=== PATIENT | male | born 1995 | race Two or more races ===

== ENCOUNTER 2017-06-13 20:04 | Emergency (ER) | payer SELFPAY ==
[~2017-06-13] VITALS: Ht 165.1 cm; Wt 56.7 kg
[2017-06-13 21:53] VITALS: BP 126/75
[2017-06-13] MEDS ORDERED: MECLIZINE 25MG25 MG PO (22:03)
--- NOTE | 2017-06-13 22:03 | Urgent Treatment Center Report ---
History of Present Issue Date/Time Seen by Provider 06/13/172149 Visit Reason Pt arrived:Walked Presenting Problem:PT STATES HE FELL AND PASSED OUT. WITNESS SAID HE DID NOT HIT ANYTHING ON THE WAY DOWN Location if Accident: Onset of symptoms date/time:/ or onset unknown for:MEDICAL HX UNKNOWN Have you (or family members/close friends) recently traveled outside the [place]? N If Yes, where/when: Have you had exposure to infectious disease within the past month? TB? Other? 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 No Angina: No [place]: No Hypertension? No Hyperlipidemia? No CHF? No DVT? No PE? No COPD? No Asthma? No Anemia? No GERD? No Gastric ulcers? No GI Bleed? No Hernia? No Thyroid Problems? No Hypothyroidism? No CVA? No Seizures? No Diabetes? No Renal Insuffiency? No UTI? No Stones? No BPH? No GB Disease: No Nephritic Syndrome? No Asplenia? No Hepatitis? No Sickle Cell Disease? No Arthritis? No Migraines? No Cataracts? No Glaucoma? No MRSA? No HIV? No TB? No Anxiety? No Depression? No Cancer? No More? No Immunization HX DT/Tetanus Unknown Surgical Hx Previous Surgery?N Social History Smoking Hx Smoker: Never Smoker Tobacco: No Alcohol Alcohol: No Review of Systems All Other Systems Reviewed and Negative Comment Dizzy with movement, feel earlier bystanders says he passed out however patient denies passing out state sthat he felt dizzy and fell denies any pain or other injuries Physical Exam Vital Signs Vital Signs Date Time Temp Pulse Resp B/P Pulse O2 O2 Flow FiO2 Ox Delivery Rate 06/13 2153 98.0 83 20 126/75 98 06/13 2057 98.0 83 20 126/75 98 General Appearance normal appearance, WD/WN, no apparent distress Ear, Nose, Throat left ear fluid noted, Respiratory Status Yes: trachea midline, chest symmetrical, non tender chest. No: respiratory distress. 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 No Results/Orders Current Medication Orders Sig/Alissa Start time Last Medication Dose Route Stop Time Status Admin Meclizine HCl 25 MG ONCE ONE 06/13 2200 DC 06/13 PO 06/13 Meclizine HCl 0 .STK-MED ONE 06/13 2159 DC .ROUTE Progress [facility] Progress Notes Comment Advised patient that he may need to be seen in ER for more extensive workup refused transfer Departure Departure Time of Disposition 2155 Disposition DC Home or Self Care(routine) Clinical Impression Primary Impression: Vertigo Condition STABLE Patient Instructions DI for Vertigo Additional Instructions Follow up with family doctor Take medication as prescribed REturn if needed Straight to ER if paitnet has true syncope eppisode Discharge Counseling Counseled pt/family regarding diagnosis, test results, medications/RX, home care, follow up needs Prescriptions Current Visit Scripts MECLIZINE HCL (Meclizine 25MG) 25 MG PO BID #20 TABLET at 2203
--- NOTE | 2017-06-13 22:03 | Urgent Treatment Center Report ---
History of Present Issue Date/Time Seen by Provider 06/13/172149 Visit Reason Pt arrived:Walked Presenting Problem:PT STATES HE FELL AND PASSED OUT. WITNESS SAID HE DID NOT HIT ANYTHING ON THE WAY DOWN Location if Accident: Onset of symptoms date/time:/ or onset unknown for:MEDICAL HX UNKNOWN Have you (or family members/close friends) recently traveled outside the [place]? N If Yes, where/when: Have you had exposure to infectious disease within the past month? TB? Other? 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 No Angina: No [place]: No Hypertension? No Hyperlipidemia? No CHF? No DVT? No PE? No COPD? No Asthma? No Anemia? No GERD? No Gastric ulcers? No GI Bleed? No Hernia? No Thyroid Problems? No Hypothyroidism? No CVA? No Seizures? No Diabetes? No Renal Insuffiency? No UTI? No Stones? No BPH? No GB Disease: No Nephritic Syndrome? No Asplenia? No Hepatitis? No Sickle Cell Disease? No Arthritis? No Migraines? No Cataracts? No Glaucoma? No MRSA? No HIV? No TB? No Anxiety? No Depression? No Cancer? No More? No Immunization HX DT/Tetanus Unknown Surgical Hx Previous Surgery?N Social History Smoking Hx Smoker: Never Smoker Tobacco: No Alcohol Alcohol: No Review of Systems All Other Systems Reviewed and Negative Comment Dizzy with movement, feel earlier bystanders says he passed out however patient denies passing out state sthat he felt dizzy and fell denies any pain or other injuries Physical Exam Vital Signs Vital Signs Date Time Temp Pulse Resp B/P Pulse O2 O2 Flow FiO2 Ox Delivery Rate 06/13 2153 98.0 83 20 126/75 98 06/13 2057 98.0 83 20 126/75 98 General Appearance normal appearance, WD/WN, no apparent distress Ear, Nose, Throat left ear fluid noted, Respiratory Status Yes: trachea midline, chest symmetrical, non tender chest. No: respiratory distress. 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 No Results/Orders Current Medication Orders Sig/Alissa Start time Last Medication Dose Route Stop Time Status Admin Meclizine HCl 25 MG ONCE ONE 06/13 2200 DC 06/13 PO 06/13 Meclizine HCl 0 .STK-MED ONE 06/13 2159 DC .ROUTE Progress [facility] Progress Notes Comment Advised patient that he may need to be seen in ER for more extensive workup refused transfer Departure Departure Time of Disposition 2155 Disposition DC Home or Self Care(routine) Clinical Impression Primary Impression: Vertigo Condition STABLE Patient Instructions DI for Vertigo Additional Instructions Follow up with family doctor Take medication as prescribed REturn if needed Straight to ER if paitnet has true syncope eppisode Discharge Counseling Counseled pt/family regarding diagnosis, test results, medications/RX, home care, follow up needs Prescriptions Current Visit Scripts MECLIZINE HCL (Meclizine 25MG) 25 MG PO BID #20 TABLET at 2203
== END 2017-06-13 22:05 | disposition home or self-care (01) ==
LOC: UTC 20:04
DX: R42 Dizziness and giddiness (principal)